=== PATIENT | female | born 1965 ===

== ENCOUNTER 2017-10-19 01:01 | Emergency (ER) | payer OTHER ==
[2017-10-19 01:15] VITALS: BP 111/72; PULSE 89; RESP 20; TEMP 98.9; O2SAT 97
--- NOTE | 2017-10-19 02:20 | C.PDOC ---
History Of Present Illness 52 year old female presents to the ED for evaluation of a mild rash to her left arm, which began after [place] returned from the beach [place] ago. Patient states she applied Arnica cream to the area with much improvement. However, patient noticed the rash worsening tonight with moderate itching. Patient also states her skin was "moving as if there might be worms underneath." Patient denies fever, chills, throat swelling, shortness of breath. Time Seen by Provider: 10/19/17 01:30 Chief Complaint (Nursing): Abnormal Skin Integrity History Per: Patient History/Exam Limitations: no limitations Onset/Duration Of Symptoms: Other (2 weeks ) Current Symptoms Are (Timing): Worse Location Of Injury: Left: Arm Quality Of Symptoms: Itching Additional History Per: Patient Past Medical History Reviewed: Historical Data, Nursing Documentation, Vital Signs Vital Signs: Last Vital Signs Temp 98.9 F 10/19/17 01:11 Pulse 89 10/19/17 01:11 Resp 20 10/19/17 01:11 BP 111/72 10/19/17 01:11 Pulse Ox 97 10/19/17 04:06 - Medical History PMH: No Chronic Diseases Surgical History: No Surg Hx Family History: States: Unknown Family Hx - Social History Hx Alcohol Use: No Hx Substance Use: No - Immunization History Hx Tetanus Toxoid Vaccination: No Hx Influenza Vaccination: No Hx Pneumococcal Vaccination: No Review Of Systems Constitutional: Negative for: Fever, Chills ENT: Negative for: Throat Swelling Respiratory: Negative for: Shortness of Breath Skin: Positive for: Rash (left arm) Physical Exam - Physical Exam Appears: Non-toxic, No Acute Distress Skin: Warm, Dry, Other (small patches of dry skin to ulnar aspect of left wrist. no erythema, warmth, swelling, mass, or track pillai ) Head: Atraumatic, Normacephalic Eye(s): bilateral: Normal Inspection Oral Mucosa: Moist, No Other (lesions) Neck: Supple Respiratory: Normal Breath Sounds, No Wheezing Extremity: Normal ROM, No Tenderness, Capillary Refill (less than 2 seconds ), No Deformity, No Swelling Pulses: Left Radial: Normal, Right Radial: Normal Neurological/Psych: Oriented x3, Normal Speech, Normal Cognition Gait: Steady ED Course And Treatment O2 Sat by Pulse Oximetry: 97 (on RA) Pulse Ox Interpretation: Normal Progress Note: On re-examination, patient is resting comfortably, showing no signs of respiratory distress and is stable for discharge. Patient is advised to follow up with her PMD within 1-2 days for further evaluation and/or return to the ED if symptoms persist or worsen. Disposition Counseled Patient/Family Regarding: Diagnosis - Disposition Referrals: Shaik Collins MD [Primary Care Provider] - Disposition: HOME/ ROUTINE Disposition Time: 02:16 Condition: STABLE Additional Instructions: Keep skin moisturized Continue Arnica cream/ Return to ER if worse Instructions: Dermatitis Forms: [employer] (Bengali) - Clinical Impression Clinical Impression: Skin irritation - PA / CHIEF OF PRODUCTION / Resident Statement MD/DO has reviewed & agrees with the documentation as recorded. - Scribe Statement The provider has reviewed the documentation as recorded by the Scribe (Maria G George) All medical record entries made by the Scribe were at my direction and personally dictated by me. I have reviewed the chart and agree that the record accurately reflects my personal performance of the history, physical exam, medical decision making, and the department course for this patient. I have also personally directed, reviewed, and agree with the discharge instructions and disposition.
== END 2017-10-19 02:33 | disposition home or self-care (01) ==
LOC: SUPCPDRO 01:01 → C.ER 01:01
DX: R21 Rash and other nonspecific skin eruption (principal)